=== PATIENT | female | born 1995 | race African-American/Black ===

== ENCOUNTER 2018-11-05 10:33 | Emergency (ER) | payer OTHER ==
[~2018-11-05] VITALS: Ht 157.5 cm; Wt 62.3 kg
[2018-11-05] MEDS ORDERED: NS 1,000 ML IV SCH (12:16)
[2018-11-05] MEDS ORDERED: METOCLOPRAMIDE INJ 10MG/2ML VIAL (J2765) IV ONE (12:30)
--- NOTE | 2018-11-05 12:55 | REP ---
Clinical: Right lower quadrant pain. Technique: Axial noncontrast images from the lung bases to the pubic symphysis with coronal and sagittal re-formations. Findings: Lung bases are clear. Visualized heart and pericardium normal. Liver, spleen, pancreas, gallbladder, bilateral adrenal glands and kidneys appear normal. No perinephric stranding, hydroureteronephrosis, intrarenal or obstructing ureteral calculi are identified. The enteric system is incompletely evaluated but there is no evidence for obstruction or acute inflammatory process. Normal terminal ileum and appendix are identified in the right lower quadrant. Pelvis demonstrates normal bladder and age-appropriate uterus/adnexa. Enlarged cystic appearance to the left ovary measuring 4 cm maximal diameter likely related to menstrual cycle and physiologic changes. No ascites. No free air. No adenopathy. Abdominal aorta without aneurysm. Musculoskeletal structures are intact. Impression: Essentially normal CT of the abdomen and pelvis. Electronically Signed by Michael Méndez MD 11/05/2018 12:47 P
[2018-11-05 13:25] LABS: BASO % 0.4 % (0.0-1.0); EOS # 0.1 10^3/uL (0.0-0.50); HEMATOCRIT 37.6 % (36.0-47.0); HEMOGLOBIN 12.3 g/dl (12.0-15.5); MEAN CORPUSCULAR HGB CONC 32.7 g/dl (32.0-36.5); MEAN CORPUSCULAR VOLUME 88.7 fl (80.0-96.0); MONO # 0.4 10^3/uL (0.0-0.8); MONO % 7.8 % (0.0-5.0); NEUTROPHILS # 2.5 10^3/uL (1.8-7.7); NEUTROPHILS % 50.4 % (36.0-66.0); PLATELET COUNT, AUTOMATED 275 10^3/uL (150-450); RED BLOOD COUNT 4.24 10^6/uL (4.00-5.40)
[2018-11-05 13:28] LABS: ALBUMIN 4.4 GM/DL (3.2-5.2); ALT/SGPT 18 U/L (12-78); BILIRUBIN,DIRECT < 0.1 MG/DL (0.0-0.2); BILIRUBIN,TOTAL 0.4 MG/DL (0.2-1.0); BLOOD UREA NITROGEN 13 MG/DL (7-18); CALCIUM LEVEL 9.6 MG/DL (8.5-10.1); CARBON DIOXIDE LEVEL 24 MEQ/L (21-32); CHLORIDE LEVEL 107 MEQ/L (98-107); CREATININE FOR GFR 0.61 MG/DL (0.55-1.30); GLOMERULAR FILTRATION RATE > 60.0 (>60); GLUCOSE, FASTING 58 MG/DL (70-100); LIPASE 161 U/L (73-393); POTASSIUM SERUM 5.2 MEQ/L (3.5-5.1); SODIUM LEVEL 138 MEQ/L (136-145); TOTAL PROTEIN 8.6 GM/DL (6.4-8.2)
[2018-11-05 13:57] VITALS: BP 104/53
[2018-11-05 14:22] LABS: HEMOGLOBIN A1c 5.4 %
== END 2018-11-05 14:11 | disposition home or self-care (01) ==
LOC: M ED 10:33
DX: R10.9 Unspecified abdominal pain (principal)
CPT/HCPCS: 36415; 74176; 80048; 80076; 81001; 81025; 83036; 83690; 85025; 96374; 99284; J2765

== ENCOUNTER 2019-10-06 05:19 | Outpatient (CLI) | payer OTHER ==
[~2019-10-06] VITALS: Ht 160 cm; Wt 81.9 kg
[2019-10-06 05:36] VITALS: BP 123/71
[2019-10-06 07:30] VITALS: BP 91/53
--- NOTE | 2019-10-06 08:16 | IPNPDOC ---
Obstetrical Progress Note Date of Service Oct 06, 2019 Subjective Ms. Tovar is a 24yo at 39+2wks by LMP (c/w 6wk US), who presents to LND for c/o ROM with subsequent onset of contractions and bloody show. She reports +FM. She states during an episode of emesis that she felt a pop and gush of clear fluid; this was at 0450 this morning. She denies further fluid leaking at this time. She states her contractions are uncomfortable, but tolerable. Ms. Tovar's is complicated by excessive weight gain (42lbs), glucose WNL at 94; she is GBS Negative, Blood type O Positive. Objective O: VSS, BP normotensive SVE: /-2, +blood tinged mucous SSE: No pooling; sample collected for ferning slide Ferning negative; nitrazine negative RAIZA: 8.75cm, WNL FHR 135, moderate variability, + accels, no decels (initial tracing FHR was minimal variability with late decelerations while she was lying on her back; once repositioned, tracing became reactive and Category I) CTX: q9 minutes, mild by palpation Vital Signs Date Time Temp Pulse Resp B/P (MAP) Pulse Ox O2 Delivery O2 Flow Rate FiO2 10/06/19 05:36 97.9 88 18 123/71 (88) Assessment and Plan Status: Reassuring Group B Streptococcus: Negative Additional Comments A: 24yo at 39+2wks, early labor, not ruptured, Category I FHT; Tracing reviewed with Dr. Montalvo P: Discharged home with labor/danger precautions f/u in clinic for scheduled TRACY or sooner JUSTINO DENISE CNM Oct 06, 2019 06:58
== END 2019-10-06 08:24 | disposition home or self-care (01) ==
LOC: M LDO 05:19
PROVIDERS: ATTEND Registered Nurse Maternal Newborn
DX: O26.853 Spotting complicating pregnancy, third trimester (principal); O21.2 Late vomiting of pregnancy; O47.1 False labor at or after 37 completed weeks of gestation; Z3A.39 39 weeks gestation of pregnancy
CPT/HCPCS: 59025; 76815; G0378; G0463

== ENCOUNTER 2019-10-09 02:54 | Inpatient (IN) | payer OTHER ==
[~2019-10-09] VITALS: Ht 160 cm; Wt 80.1 kg
[2019-10-09] VITALS (41 sets, daily range): BP systolic 97–143; BP diastolic 55–86
[2019-10-09] MEDS ORDERED: PREN29TA4 PO (03:22)
[2019-10-09] MEDS ORDERED: LR 1,000 ML IV SCH ×2 (05:58→11:14)
[2019-10-09] MEDS ORDERED: LACTATED RINGER'S 1000 ML IV ONE (06:00)
[2019-10-09 06:22] LABS: BASO # 0.1 10^3/uL (0.0-0.2); BASO % 0.5 % (0.0-1.0); EOS % 0.3 % (0.0-3.0); HEMOGLOBIN 11.5 g/dl (12.0-15.5); LYMPH # 1.4 10^3/uL (1.5-5.0); LYMPH % 12.8 % (24.0-44.0); MEAN CORPUSCULAR HEMOGLOBIN 28.7 pg (27.0-33.0); MEAN CORPUSCULAR HGB CONC 31.9 g/dl (32.0-36.5); MEAN CORPUSCULAR VOLUME 89.8 fl (80.0-96.0); MONO # 1.2 10^3/uL (0.0-0.8); MONO % 11.4 % (0.0-5.0); NEUTROPHILS # 7.9 10^3/uL (1.5-8.5); NEUTROPHILS % 72.6 % (36.0-66.0); PLATELET COUNT, AUTOMATED 187 10^3/uL (150-450); RED BLOOD COUNT 4.01 10^6/uL (4.00-5.40); WHITE BLOOD COUNT 10.8 10^3/uL (4.0-10.0)
[2019-10-09] MEDS ORDERED: FENTANYL 2MCG/ML ROPIVACAINE 0.2% IN 0.9% NACL 100ML IVBAG As Ordered ONE (09:10)
[2019-10-09] MEDS ORDERED: EPIDURAL/PCA KEYS XX PRN (09:30)
[2019-10-09] MEDS ORDERED: LACTATED RINGER'S 1000 ML IV PRN (09:30)
[2019-10-09] MEDS ORDERED: FENTANYL/ROPIVACAINE/NACL BAG 100 ML EPIDURAL SCH (09:30)
[2019-10-09] MEDS ORDERED: EPIDURAL COMMENT XX SCH (09:30)
[2019-10-09] MEDS ORDERED: diphenhydrAMINE INJ 50MG/ML VIAL (J1200) IV PRN (09:30)
[2019-10-09] MEDS ORDERED: ONDANSETRON 4MG/2ML VIAL (J2405) IV PRN (09:30)
[2019-10-09] MEDS ORDERED: NALOXONE INJ 0.4 MG/1 ML VIAL (J2310) IV PRN (09:30)
[2019-10-09] MEDS ORDERED: REFRIGERATOR IV KEYS XX PRN (09:30)
[2019-10-09] MEDS ORDERED: ePHEDrine SULFATE 25 MG/5 ML(5MG/ML) SYRINGE IV PRN (09:30)
[2019-10-09] MEDS ORDERED: OXYTOCIN DRIP 30 UNITS in IV 1 EA IV SCH ×2 (11:15→20:28)
--- NOTE | 2019-10-09 11:21 | IPNPDOC ---
Text Note Date of Service The patient was seen on 10/09/19. NOTE Intrapartum Received report from Dr. Medina this AM. Ms. Tovar is a 24 yo at 39+5 weeks who was admitted this AM after PROM, clear fluid at ~0500. Her admission cervical exam was 2/80/[address] Medina. Contractions were painful, but not particularly regular. Her is uncomplicated. She is GBS negative. Ms. Tovar just received an epidural and is comfortable. Contractions have spaced on toco to Q7-9 minutes. Cervix: unchanged at 2/80/-1 by my exam. FHR tracing - Cat I No cervical change for ~6 hours. I Recommended pitocin initiation. Patient counseled on all risks and benefits of pitocin labor augmentation. She elects to proceed. All patient questions answered. DO Parish VS,Malcolm, I+O VS, Malcolm, I+O Laboratory Tests 10/09/19 06:00 Vital Signs Date Time Temp Pulse Resp B/P (MAP) Pulse Ox O2 Delivery O2 Flow Rate FiO2 10/09/19 09:39 108 18 128/76 (93) 10/09/19 03:13 97.7 HODA BANKS DO Oct 09, 2019 11:21
--- NOTE | 2019-10-09 14:56 | HPE ---
DATE OF ADMISSION: 10/09/2019 This lady is a 1, para 0, LMP is 12/16/2018, EDC 10/11/2019 at 39 at 5 weeks of gestation with a history of spontaneous rupture of membranes, clear liquid and spontaneous contractions. Labs are O positive, HIV negative, hepatitis negative, RPR negative, rubella immune, varicella immune. 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 1-hour glucose was 94 and Group B streptococcus (GBS) was negative. PHYSICAL EXAMINATION: No distress. Symphysis fundus height is 40, vertex -1 station 80% effaced, occiput transverse 2 cm clear liquid. Category one strip. Urine is 10/10, pH of 6. The rest is negative. Blood pressure 119/82, respirations 18, pulse 90, temperature 97.7. The rest examination is unremarkable. She is normocephalic, atraumatic. Neck: Full range of motion. Pupils equal and reactive to light. Distal pulses symmetric. No evidence of deep venous thrombosis (DVT), pulmonary embolism or superficial phlebitis. Chest is clear bilaterally base. No wheezes or rhonchi. Abdomen: Soft, four quadrant bowel sounds are noted. Symphysis fundus height is appropriate. She has no rashes, lesions or pruritus. No arthralgia or myalgia. No complaint of joint pain. No complaint of cough, wheeze or shortness breath or dyspnea on exertion. No bruising. No bleeding. Neuro complete. No incontinency or any frequency. No nausea, vomiting, diarrhea or constipation. No diabetic issues. Past gyne history: She has an abnormal Pap smear was ASCUS HPV positive to be followed up . No evidence of sexually transmitted diseases (STDs). PAST MEDICAL AND SURGICAL: Unremarkable. FAMILY HISTORY: Noncontributory. She does not smoke, drink, abuse drugs. She is . No domestic violence. ALLERGIES: No known allergies. We discussed the consent for vaginal delivery which is delivery through the vagina with possible assistance of forceps or vacuum devices if needed. Maternal and indications forceps a vacuum device can assist with vaginal delivery when normal pushing efforts cannot achieve delivery on their own or when delivery is needed in emergency for the baby's well-being. Medications may be required to induce or augment labor. In order achieve vaginal delivery an episiotomy may or may be required to help the baby deliver vaginally. You may also require repair of any lacerations or tears of your vagina or vulva that are caused by delivery in some cases emergencies can arise that require emergency section, your provider will discuss the risks and benefits of section before proceeding section delivery of baby through that incision in the abdomen and some situations may be safer to mom and baby than continuing labor only performed when clinically indicated. Risk of vaginal delivery include but not limited to bleeding, infection, injury to the vagina, pelvic structures, injury to baby, damage to the uterus, reaction to anesthesia, uterine rupture, risk of hysterectomy for life-threatening bleeding or even . Medications used to induce or augment labor may cause risk for infection, uterine tachysystole, uterine rupture, heart rate abnormalities which may require emergency delivery and possible hysterectomy and there may be a risk of perineal and vaginal lacerations, risks of urinary and bowel injuries, increased risk of the baby with bruising, scratches, or hematomas to the head or intracranial bleed. The patient verbalized understanding, has declined pain management at the present time, both IV meds and epidural have been offered.
--- NOTE | 2019-10-09 15:58 | IPNPDOC ---
Text Note Date of Service The patient was seen on 10/09/19. NOTE Intermittent breaks in the tracing and occasional periods of minimal variabil ity. Cervix: 6/C/0. Small forebag ruptured with clear fluid resulting. FHR Cat II currently, but with moderate variability and overall reassuring. Ms. Tovar is progressing. Pitocin currently at 8mU. Will continue to titrate to effect. Will re examine in 2-4 hours or sooner as needed. DO Parish VS,Malcolm I+O VS, Malcolm, I+O Laboratory Tests 10/09/19 06:00 Vital Signs Date Time Temp Pulse Resp B/P (MAP) Pulse Ox O2 Delivery O2 Flow Rate FiO2 10/09/19 09:39 108 18 128/76 (93) 10/09/19 03:13 97.7 HODA BANKS DO Oct 09, 2019 15:58
--- NOTE | 2019-10-09 18:05 | IPNPDOC ---
Text Note Date of Service The patient was seen on 10/09/19. NOTE Still some difficulty tracing the baby's heart rate, especially during contra ctions. Tennille reports feeling well. She endorses only mild pressure. Cervix: 9/C/0, FSE placed. Known cervical polyp palpated. After FSE placement FHR Cat I with baseline 125, moderate variability, no current accels, no decels. Continue with pitocin. DO Parish VS,Malcolm, I+O VS, Malcolm, I+O Laboratory Tests 10/09/19 06:00 Vital Signs Date Time Temp Pulse Resp B/P (MAP) Pulse Ox O2 Delivery O2 Flow Rate FiO2 10/09/19 09:39 108 18 128/76 (93) 10/09/19 03:13 97.7 HODA BANKS DO Oct 09, 2019 18:05
[2019-10-09] MEDS ORDERED: DIBUCAINE 1% OINTMENT 30GM TOP PRN (20:30)
[2019-10-09] MEDS ORDERED: IBUPROFEN 800 MG TAB PO PRN (20:30)
[2019-10-09] MEDS ORDERED: IBUPROFEN 600 MG TAB PO PRN (20:30)
[2019-10-09] MEDS ORDERED: PROMETHAZINE 25 MG TAB PO PRN (20:30)
[2019-10-09] MEDS ORDERED: MEASLES,MUMPS,RUBELLA VACCINE INJ (MMR-II) (90707) SC SCH (20:30)
[2019-10-09] MEDS ORDERED: RHOGAM 300 MCG (1500 IU) INJ (J2790) IM SCH (20:30)
[2019-10-09] MEDS ORDERED: ACETAMINOPHEN 500 MG TAB PO PRN (20:30)
[2019-10-09] MEDS ORDERED: ACETAMINOPHEN TAB 650MG DOSE (2X325MG) PO PRN (20:30)
[2019-10-09] MEDS ORDERED: DOCUSATE SODIUM 100 MG CAP PO PRN (20:30)
--- NOTE | 2019-10-09 20:37 | DNPDOC ---
[facility] Delivery Note Delivery Note DATE OF DELIVERY: 09Oct2019 at ~2000 PREDELIVERY DIAGNOSIS: 39+5 weeks gestation and labor POST DELIVERY DIAGNOSIS: Delivered. PROCEDURE: Spontaneous vaginal delivery HOSPITALITY SERVICES MANAGER: Dr. Lugo ANESTHESIA: Epidural ESTIMATED BLOOD LOSS: 250 mL. FINDINGS: Viable male , 7lbs 1oz (3200 grams), Apgars 9/9 DELIVERY SUMMARY: Called to room as Tennille was pushing well to +3 station. The bed was broken down and she was prepped for delivery. With excellent pushing effort her delivered after less than an hour. presentation was FOZIA with restitution to LOT. The right anterior shoulder delivered with gentle traction followed easily by the remainder of the body. The infant was dried and stimulated on the field and a bulb suction was used. The infant was then placed on the maternal abdomen and cried vigorously. The three vessel cord was then clamped and cut by the FOB after appropriate time delay and under my direction. Third stage was then completed with gentle traction on the cord and it was productive of an intact placenta. The uterine fundus was firmed with massage and pitocin was administered via IV bolus. Inspection of the vagina, perineum, and cervix revealed a small, midline 1st degree laceration and a may-clitoral laceration. These lacerations were repaired in the usual fashion with 3-0 ben ryl suture. There was excellent cosmesis and hemostasis after the repair. The fundus was palpated again and was firm. Sponge, instrument, and needle counts were correct X2. Mother and infant stable when I left the room. DO DARREN Guillaume CHRISTOPHER J. DO Oct 09, 2019 20:37
[2019-10-10 06:11] VITALS: BP 99/57
--- NOTE | 2019-10-10 07:32 | IPNPDOC ---
Progress Note Date of Service: Oct 10, 2019 Progress Note Tennille is a 24 yo G1 now P1 who is PPD#1 s/p uncomplicated yesterday evening ~2000 after being admitted for labor and SROM. Overnight there were no acute events. Ms. Tovar was sleeping soundly. I did not awaken her. Vitals - VSS, afebrile, normotensive, non tachycardic General - Sleeping soundly UO - voiding on own without issues Ms. Tovar appears to be making an appropriate recovery based on chart review and discussion with RN. Continue routine care. Anticipate di scharge home tomorrow. DO Parish VS, I&O, 24H, Fishbone Vital Signs/I&O Vital Signs Date Time Temp Pulse Resp B/P (MAP) Pulse Ox O2 Delivery O2 Flow Rate FiO2 10/10/19 06:11 97.8 83 18 99/57 (71) 10/09/19 22:30 99 Room Air I&O- Last 24 Hours up to 6 AM 10/10/19 06:00 Intake Total 2375 ml Output Total 1350 ml Balance 1025 ml HODA BANKS DO Oct 10, 2019 07:32
[2019-10-10] MEDS: PRENATAL VITAMINS CHEWABLE TABLET PO SCH (08:42)
[2019-10-10 18:09] VITALS: BP 127/77
[2019-10-11 06:05] VITALS: BP 121/75
[2019-10-11] MEDS ORDERED: DOCU100C16 PO (06:08)
[2019-10-11] MEDS ORDERED: DIBU10OI TOP (06:08)
[2019-10-11] MEDS ORDERED: IBUP80TA PO (06:08)
--- NOTE | 2019-10-11 07:17 | IPN ---
DATE: 10/10/2019 This lady is a 1, now para 1, who had a spontaneous vaginal delivery of a live male infant. Presently on day one. She is mobilizing, passing gas and voiding. No evidence of issues. Lochia is moderate. Uterus is firm, two below. The first-degree tear is healing well. Her blood pressure today is 99/57, respirations are 18, pulse 83, and temperature 97.8. She is planning on breast-feeding and is uncertain about control, which will be discussed at her 6-week checkup. In summary, we have a term gestation who delivered a live male infant. We discussed circumcision for her infant. All questions were answered, 20-minute discussion, and we are waiting the clearance by the supervisor shipping.
--- NOTE | 2019-10-11 08:02 | DSES ---
DATE OF ADMISSION: 10/09/2019 DATE OF DISCHARGE: 10/11/2019 This lady is a 1, para 1 admitted in active labor at 39 weeks gestation with spontaneous rupture of membranes with epidural in place, delivered a live male infant 7 pounds 1 ounce 3200 grams. of 9 and 9 at 1 and 5 minute respectively. She has small first-degree tear was oversewn usual fashion. On her second day we discussed phlebitis, cystitis, mastitis, metritis and cellulitis, diet, exercise pain manage perineal and breast care. Plan for control is undecided present time. On discharge her blood pressure 127/77, respiration 18, pulse 95 and temperature 98.9. Her admitting hemoglobin was 11.5, hematocrit 36.0 and platelets 187. The rest examination unremarkable. Normocephalic, atraumatic. Neck: Full range of motion. Pupils equally reactive to light. Distal pulses symmetric. No evidence of DVT, PE or superficial phlebitis. Chest is clear bilaterally bases. No wheezes or rhonchi. No CVA tenderness. Abdomen: Soft uterus two below. Lochia is moderate for quadrant bowel sounds are noted. She has no rashes, lesions or pruritus. No arthralgia or myalgia. No complaint joint pain. No complaint cough, wheeze, shortness of breath or dyspnea on exertional nausea, vomiting, diarrhea or constipation. No urgency or frequency. In summary have a term gestation delivered a live male infant. Plan discharge for today. Breast-feeding is going well. Has a 6-week appointment at [facility] for 6-week checkup and medications were dispensed at [facility].
[2019-10-11] MEDS: PRENATAL VITAMINS CHEWABLE TABLET PO SCH (10:16)
--- NOTE | 2019-10-14 13:31 | IPN ---
DATE: 10/10/2019 The patient and request circumcision of their male after discussing risks and benefits of circumcision, medical and nonmedical indications, penile block and aftercare, expressed understanding penile block and aftercare and bleeding, signed consent form. All questions were answered. 20-minute discussion. We await the clearance by the municipal bond trader.
== END 2019-10-11 10:25 | disposition home or self-care (01) | DRG 807 ==
LOC: M LDO 02:54 → M LDI 05:19 → M OBS 22:19
PROVIDERS: ADMIT Obstetrics & Gynecology; ATTEND Obstetrics & Gynecology
PROC: 10E0XZZ Delivery of Products of Conception, External Approach (ICD-10-PCS; principal; 2019-10-09)
PROC: 0HQ9XZZ Repair Perineum Skin, External Approach (ICD-10-PCS; 2019-10-09)
DX: O70.0 First degree perineal laceration during delivery (principal); Z37.0 Single live birth; Z3A.39 39 weeks gestation of pregnancy